=== PATIENT | male | born 1955 | race Caucasian/White ===

== ENCOUNTER 2016-10-18 14:31 | Inpatient (IN) | payer BC ==
[2016-10-18] MEDS ORDERED: Albuterol/Ipratropium NEB.SOL* Albuterol 2.5 MG/Ipratropium 0.5 MG 3 ML INH ONE ×2 (14:55→15:12)
[2016-10-18] MEDS ORDERED: Levofloxacin 750 MG IVPREMIX(* 750 MG/150 ML BAG IVPB ONE (15:11)
--- NOTE | 2016-10-18 15:16 | RAD ---
HISTORY: Cough COMPARISONS: None VIEWS:1: Single frontal portable view of the chest at 3:00 PM FINDINGS: LINES AND TUBES: None. CARDIOMEDIASTINAL SILHOUETTE: The cardiomediastinal silhouette is normal for portable technique. PLEURA: The costophrenic angles are sharp. No pleural abnormalities are noted. LUNG PARENCHYMA: The lungs are clear. ABDOMEN: The upper abdomen is clear. There is no subphrenic gas. BONES AND SOFT TISSUES: No bone or soft tissue abnormalities are noted. IMPRESSION: NO ACTIVE CARDIOPULMONARY DISEASE.
[2016-10-18 15:43] LABS: Hematocrit 46 % (42-52); Hemoglobin 15.8 g/dl (14.0-18.0); Mean Corpuscular HGB Conc 34 g/dl (31-36); Mean Corpuscular Hemoglobin 32 pg (27-31); Mean Corpuscular Volume 93 fL (80-94); Mean Platelet Volume 9 um3 (7.4-10.4); Red Blood Count 4.96 10^6/ul (4.0-5.4); Red Cell Distribution Width 13 % (10.5-15); White Blood Count 13.1 10^3/ul (3.5-10.8)
[2016-10-18 15:53] LABS: Urine Bacteria Absent (Absent); Urine Bilirubin Negative (Negative); Urine Glucose Negative (Negative); Urine Nitrite Negative (Negative)
[2016-10-18] MEDS: NS 0.9% 1000 ML* 2,900 ML IV ONE (15:53)
[2016-10-18 16:05] LABS: Albumin 3.7 g/dL (3.2-5.2); Calcium 9.1 mg/dL (8.6-10.3); EGFR African American 90.1 (>60); Globulin 3.6 g/dL (2-4); Potassium 3.3 mmol/L (3.5-5.0); Total Bilirubin 1.7 mg/dL (0.2-1.0); Total Protein 7.3 g/dL (6.4-8.9)
[2016-10-18 16:12] LABS: Add Diff/Slide Review? Slide Review Added; Comments Flag Yes
[2016-10-18] MEDS ORDERED: Albuterol 2.5 MG/3 ML NEB.SOL* (0.083%) INH PRN (16:33)
[2016-10-18] MEDS ORDERED: methylPREDNISolone 125 MG* 2 ML VIAL IV ONE (16:33)
[2016-10-18 16:37] LABS: C Reactive Protein 234.8 mg/L (< 5.00)
[2016-10-18] MEDS ORDERED: Acetaminophen TAB* 325 MG PO PRN (16:45)
[2016-10-18] MEDS ORDERED: Ketorolac INJ* 30 MG/ML 1 ML VIAL IV PUSH ONE (16:45)
--- NOTE | 2016-10-18 16:54 | RAD ---
Indication: Dyspnea. Comparison is done with exam done earlier the same day. 2 views of the chest including dual energy PA views demonstrate no mediastinal shift. Heart is of normal size and configuration. Airspace disease is noted in the right midlung field. Left lung field is clear. IMPRESSION: Findings suspicious for right mid lung zone pneumonia.
[2016-10-18 17:06] LABS: Immature Granulocytes 20 % (0-9); Metamyelocytes % 1 % (0-2); Neutrophil % 63 % (38-83); RBC Morphology Normal (Normal)
[2016-10-18] MEDS: Enoxaparin(*) 40 MG/0.4 ML SYR SUBCUT SCH (18:28)
[2016-10-18] MEDS ORDERED: Levalbuterol 1.25MG/0.5ML NEB INH PRN (18:39)
--- NOTE | 2016-10-18 19:21 | ED ---
Jessie Smart Thomas, scribed for Cynthia Xiao MD on 10/18/16 at 1459 . Shortness of Breath - HPI Summary HPI Summary: The pt is a 61 y/o M referred from his family medicine office and BIBA to the ED c/o SOB that began yesterday when he was playing golf and has continued since. He also complains of a cough with green production that began 2 months ago but has worsened in the last four days. Pt additionally c/o night sweats, fever, and nasal congestion. PMHx: fractures. PSHx: orthopedic surgeries. SHx: former smoker (quit 20 years ago), heavy alcohol use, no illicit drug use. FHx: negative. He lives with his significant other. He has not been evaluated by a PCP in 7 years. He is on [place] Oxygen 4L. - History of Current Complaint Chief Complaint: EDShortnessOfBreath Time Seen by Provider: 10/18/16 14:41 Hx Obtained From: Patient Onset/Duration: Lasting Days - 1, Still Present Dyspnea At: Rest Alleviating Factors: Nothing Associated Signs & Symptoms: Cough (Productive) - green production, Fever, Diaphoresis - night, Nasal Congestion - Allergy/Home Medications Allergies/Adverse Reactions: Allergies Allergy/AdvReac Type Severity Reaction Status Date / Time Penicillins Allergy Hives Verified 10/18/16 14:52 PMH/Surg Hx/FS Hx/Imm Hx Previously Healthy: No Cardiovascular History: Denies: Hx Congestive Heart Failure Respiratory History: Denies: Hx Cystic Fibrosis Musculoskeletal History: Reports: Hx of Fracture(s) - Surgical History Surgery Procedure, Year, and Place: multiple joint/bone Fell out of [place] [employer]. Oral surgery - Immunization History Date of Tetanus Vaccine: PT STATES UNSURE Date of Influenza Vaccine: PT STATES UNSURE Infectious Disease History: No Infectious Disease History: Denies: Hx of Known/Suspected MRSA, Hx Shingles, Hx Tuberculosis, Traveled Outside the [place] in Last 30 Days - Family History Known Family History: Negative: Other - When asked FHx, he responds "nothing" - Social History Alcohol Use: Daily - heavy Substance Use Type: Reports: None Hx Tobacco Use: Yes Smoking Status (MU): Former Smoker Review of Systems Positive: Fever, Skin Diaphoresis - night Positive: Other - POS: nasal congestion Positive: Shortness Of Breath - onset yesterday, Cough - onset 2 months ago, green production All Other Systems Reviewed And Are Negative: Yes Physical Exam Triage Information Reviewed: Yes Vital Signs On Initial Exam: Initial Vitals Pulse Resp Pulse Ox 74 20 93 10/18/16 14:41 10/18/16 14:41 10/18/16 14:41 Vital Signs Reviewed: Yes Appearance: Positive: Well-Appearing, No Pain Distress Skin: Positive: Warm, Skin Color Reflects Adequate Perfusion, Dry Eyes: Positive: EOMI, RUSTY ENT: Positive: Pharynx normal, TMs normal Neck: Positive: Supple, Nontender Respiratory/Lung Sounds: Positive: Clear to Auscultation, Decreased Breath Sounds - bilaterally, Other - He is tachypnic and on oxygen. Cardiovascular: Positive: RRR. Negative: Murmur, Rub, Other - NEG: gallop Abdomen Description: Positive: Nontender, Soft. Negative: Distended, Guarding, Other: - NEG: rebound Bowel Sounds: Positive: Present Musculoskeletal: Positive: Strength/ROM Intact. Negative: Edema Left, Edema Right Neurological: Positive: Sensory/Motor Intact, Alert, Oriented to Person Place, Time, CN Intact II-III Psychiatric: Positive: Affect/Mood Appropriate Diagnostics - Vital Signs Vital Signs Temp Pulse Resp BP Pulse Ox 10/18/16 14:46 100.5 F 102 24 114/77 96 10/18/16 14:45 45 23 95 10/18/16 14:41 74 20 93 - Laboratory Lab Results: Lab Results 10/18/16 10/18/16 10/18/16 Range/Units 15:30 15:30 15:30 WBC 13.1 H (3.5-10.8) 10^3/ul RBC 4.96 (4.0-5.4) 10^6/ul Hgb 15.8 (14.0-18.0) g/dl Hct 46 (42-52) % MCV 93 (80-94) fL MCH 32 H (27-31) pg MCHC 34 (31-36) g/dl RDW 13 (10.5-15) % Plt Count 189 (150-450) 10^3/ul MPV 9 (7.4-10.4) um3 Immature Gran % (Auto) 20 H (0-9) % Neut % (Auto) 82.7 (38-83) % Lymph % (Auto) 5.0 L (25-47) % [place] % (Auto) 11.9 H (1-9) % Eos % (Auto) 0 (0-6) % Baso % (Auto) 0.4 (0-2) % Absolute Neuts (auto) 10.8 H (1.5-7.7) 10^3/ul Absolute Lymphs (auto) 0.7 L (1.0-4.8) 10^3/ul Absolute Monos (auto) 1.6 H (0-0.8) 10^3/ul Absolute Eos (auto) 0 (0-0.6) 10^3/ul Absolute Basos (auto) 0.1 (0-0.2) 10^3/ul Absolute Nucleated RBC 0 10^3/ul Neutrophils % 63 (38-83) % Band Neutrophils % 19 H (0-8) % Lymphocytes % 7 L (25-47) % Monocytes % 10 (0-13) % Metamyelocytes % 1 (0-2) % Nucleated RBC % 0 Normal RBC Morphology Normal (Normal) INR (Anticoag Therapy) 1.10 (0.89-1.11) APTT 29.2 (26.0-36.3) seconds Sodium 136 (133-145) mmol/L Potassium 3.3 L (3.5-5.0) mmol/L Chloride 103 (101-111) mmol/L Carbon Dioxide 21 L (22-32) mmol/L Anion Gap 12 H (2-11) mmol/L BUN 15 (6-24) mg/dL Creatinine 1.07 (0.67-1.17) mg/dL Est GFR ( Amer) 90.1 (>60) Est GFR (Non-Af Amer) 70.0 (>60) BUN/Creatinine Ratio 14.0 (8-20) Glucose 124 H (70-100) mg/dL Lactic Acid (0.5-2.0) mmol/L Calcium 9.1 (8.6-10.3) mg/dL Magnesium 2.0 (1.9-2.7) mg/dL Total Bilirubin 1.70 H (0.2-1.0) mg/dL AST 15 (13-39) U/L ALT 13 (7-52) U/L Alkaline Phosphatase 71 (34-104) U/L Troponin I 0.00 (<0.04) ng/mL C-Reactive Protein 234.80 H (< 5.00) mg/L Total Protein 7.3 (6.4-8.9) g/dL Albumin 3.7 (3.2-5.2) g/dL Globulin 3.6 (2-4) g/dL Albumin/Globulin Ratio 1.0 (1-3) Urine Color Urine Appearance Urine pH (5-9) Ur Specific [place] (1.010-1.030) Urine Protein (Negative) Urine Ketones (Negative) Urine Blood (Negative) Urine Nitrate (Negative) Urine Bilirubin (Negative) Urine Urobilinogen (Negative) Ur Leukocyte Esterase (Negative) Urine WBC (Auto) (Absent) Urine RBC (Auto) (Absent) Ur Squamous Epith Cells (Absent) Urine Bacteria (Absent) Hyaline Casts (Absent) Urine Glucose (Negative) 10/18/16 10/18/16 Range/Units 15:30 15:40 WBC (3.5-10.8) 10^3/ul RBC (4.0-5.4) 10^6/ul Hgb (14.0-18.0) g/dl Hct (42-52) % MCV (80-94) fL MCH (27-31) pg MCHC (31-36) g/dl RDW (10.5-15) % Plt Count (150-450) 10^3/ul MPV (7.4-10.4) um3 Immature Gran % (Auto) (0-9) % Neut % (Auto) (38-83) % Lymph % (Auto) (25-47) % [place] % (Auto) (1-9) % Eos % (Auto) (0-6) % Baso % (Auto) (0-2) % Absolute Neuts (auto) (1.5-7.7) 10^3/ul Absolute Lymphs (auto) (1.0-4.8) 10^3/ul Absolute Monos (auto) (0-0.8) 10^3/ul Absolute Eos (auto) (0-0.6) 10^3/ul Absolute Basos (auto) (0-0.2) 10^3/ul Absolute Nucleated RBC 10^3/ul Neutrophils % (38-83) % Band Neutrophils % (0-8) % Lymphocytes % (25-47) % Monocytes % (0-13) % Metamyelocytes % (0-2) % Nucleated RBC % Normal RBC Morphology (Normal) INR (Anticoag Therapy) (0.89-1.11) APTT (26.0-36.3) seconds Sodium (133-145) mmol/L Potassium (3.5-5.0) mmol/L Chloride (101-111) mmol/L Carbon Dioxide (22-32) mmol/L Anion Gap (2-11) mmol/L BUN (6-24) mg/dL Creatinine (0.67-1.17) mg/dL Est GFR ( Amer) (>60) Est GFR (Non-Af Amer) (>60) BUN/Creatinine Ratio (8-20) Glucose (70-100) mg/dL Lactic Acid 1.1 (0.5-2.0) mmol/L Calcium (8.6-10.3) mg/dL Magnesium (1.9-2.7) mg/dL Total Bilirubin (0.2-1.0) mg/dL AST (13-39) U/L ALT (7-52) U/L Alkaline Phosphatase (34-104) U/L Troponin I (<0.04) ng/mL C-Reactive Protein (< 5.00) mg/L Total Protein (6.4-8.9) g/dL Albumin (3.2-5.2) g/dL Globulin (2-4) g/dL Albumin/Globulin Ratio (1-3) Urine Color [place] Urine Appearance Cloudy Urine pH 5.0 (5-9) Ur Specific [place] 1.029 (1.010-1.030) Urine Protein 2+(100 mg/dl) H (Negative) Urine Ketones 2+ H (Negative) Urine Blood Negative (Negative) Urine Nitrate Negative (Negative) Urine Bilirubin Negative (Negative) Urine Urobilinogen Positive H (Negative) Ur Leukocyte Esterase Negative (Negative) Urine WBC (Auto) Trace(0-5/hpf) (Absent) Urine RBC (Auto) 2+(6-10/hpf) H (Absent) Ur Squamous Epith Cells Present H (Absent) Urine Bacteria Absent (Absent) Hyaline Casts Present H (Absent) Urine Glucose Negative (Negative) Result Diagrams: 10/18/16 15:30 10/18/16 15:30 Lab Statement: Any lab studies that have been ordered have been reviewed, and results considered in the medical decision making process. - CT CXR CT Interpretation: No Acute Changes - CXR reveals no active cardiopulmonary disease. ED physician has reviewed this radiology report and agrees. CT Interpretation Completed By: Radiologist - EKG 14:46 Cardiac Rate: Tachycardia - 113 BPM EKG Interpretation: Sinush tach. PACs and PVCs. Inferior Q waves. Poor R wave progression. EKG Comparison: Other - No prior Course/Dx - Course Course Of Treatment: 61 yo male with no med care for 7 years sent by EDMdesigner with fever there of 103 and o2 sat in the 80's. Pt coughing frequently on exam and tachypneic, sepsis protocol initiated and call made to Dr. Kibmrough for admission - Diagnoses Provider Diagnoses: Pneumonia - Physician Notifications Discussed Care of Patient With: Zoran Kimbrough Time Discussed With Above Provider: 15:37 Instructed by Provider To: Other - He was made aware of the patient. He was admitted to [facility] at 17:15. Discharge - Discharge Plan Condition: Fair Disposition: ADMITTED TO [facility] The documentation as recorded by the Jessie singh Thomas accurately reflects the service I personally performed and the decisions made by me, Cynthia Xiao MD.
[2016-10-18] MEDS: guaiFENesin ER TAB 600 MG PO SCH (20:35)
--- NOTE | 2016-10-18 22:30 | HP ---
CC: Anshul Nicole MD * MEDICINE HISTORY AND PHYSICAL: DATE OF ADMISSION: 10/18/16 PROVIDER: Bryan Goncalves NP ATTENDING PHYSICIAN: Zoran Kimbrough MD * (as dictated by Bryan Goncalves NP) PRIMARY CARE PROVIDER: Anshul Nicole MD CHIEF COMPLAINT: Cough and shortness of breath. HISTORY OF PRESENT ILLNESS: Mr. Lowe is a 61-year-old male patient who presents to the ER today after being referred here by his primary care provider for concern for respiratory distress. Of note, the patient does follow up with Dr. Nicole, but states that he has not been there in 7 years. He states "I don 't usually see doctors." He denies any past medical history or any current medications. He reports the cough has been dry and persistent for over a year. He has not pursued workup for this. The cough has worsened this week around Saturday becoming increasingly worse. Cough wakes him up at night. The patient is unable to sleep and usually has a sleep sitting up either in a recliner or propped up with pillows. He has subjective fevers at home with evidence of sweating and chills. He reports increasing weakness. The patient has been coughing up green secretions. He has been treating his cough with Tessalon Perles that have been left over from his significant other's prescription. He also reports associated headache and chest pain that he relates to the cough from excessive coughing. The patient also reports posttussive vomiting due to the degree of coughing that he has had. Here in the ER, the patient becomes very winded and is provoked into further coughing fits with even minimal discussion. In the ER, the patient was noted to have a low-grade fever of 100.5. He is tachycardic. He is requiring 4.5 L of oxygen to maintain his O2 sats and keep him comfortable. He has an elevated WBC count of 13,000 as well as elevated CRP of 234. The patient's initial chest x-ray showed no acute pathology, but there is a portable chest x-ray. We did obtain a lateral view, which shows a right mid lung zone pneumonia. PAST MEDICAL HISTORY: The patient denies, although his significant other reports that he has a previous history of genital herpes. HOME MEDICATIONS: On no medications. 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 Name of medication is unknown by family. ALLERGIES: PENICILLIN. FAMILY HISTORY: Reviewed and noncontributory. SOCIAL HISTORY: The patient denies any history of tobacco use. He does have gin and tonic 1 to 2 drinks on most days. He denies any history of illicit drug use. He works in . He lives with his significant other, Lizeth Salcido , who is also his surrogate decision maker. REVIEW OF SYSTEMS: A 12-point review of systems was completed. All those not mentioned in the HPI are negative. PHYSICAL EXAMINATION GENERAL: Mr. Lowe is a 61-year-old male patient, who is well developed. He is lying in the ED stretcher. He is coughing persistently and appears moderately distressed. VITAL SIGNS: Temperature 100.5, heart rate 108, respiratory rate 22, blood pressure 127/73, and O2 saturation is 99% on 4.5 L nasal cannula. HEENT: Head is atraumatic, normocephalic. Face is symmetrical. Pupils are equal, round and reactive to light. Extraocular movements are intact. Oral mucosa appears dry. There is no oropharyngeal exudate. NECK: Supple. No lymphadenopathy appreciated at this point in time along the cervical, supraclavicular, and auricular nodes. No JVD noted. RESPIRATORY: Lung are diffusely wheezy with expiration. The patient has decreased breath sounds on the right side. The patient has a persistent productive cough. CARDIAC: S1, S2 heart sounds. Regular rate and rhythm. No murmurs, rubs, or gallops. There is no peripheral edema. The patient has 2+ distal pulses. ABDOMEN: Soft, nontender, nondistended. Bowel sounds are present times all 4 quadrants. MUSCULOSKELETAL: There is no clubbing or cyanosis. The patient has full range of motion. SKIN: Appears grossly intact. The patient has a francisco j complexion and warm to the touch, appears to be flushed. NEURO: Cranial nerves II through XII are grossly intact. The patient moves all extremities. Sensation is intact to light touch in all extremities. PSYCH: He is alert and oriented x3. Affect is appropriate. LABORATORY DATA/DIAGNOSTIC STUDIES: CBC: WBC 13.1, hemoglobin 15.8, hematocrit 46, platelet count 189. CMP: Sodium 136, potassium 3.3, chloride 103, carbon dioxide 21, BUN 15, creatinine 1.07, glucose 124. Lactic acid 1.1. Calcium 9.1, magnesium 2.0. Total bilirubin 1.7, AST 15, ALT 13, alk phos 71. Troponin 0.00. CRP 234. Urinalysis shows urine specific gravity of 1.029. The patient has positive protein and ketones in his urine as well as positive rbc's. PA and lateral views of the chest x-ray showed concern for right mid lung pneumonia. EKG shows sinus tachycardia with PVCs. The patient has a left axis deviation. ASSESSMENT AND PLAN: Mr. Lowe is a 61-year-old male patient who presents today with dyspnea, cough, respiratory distress with concern for right mid lung pneumonia. He will be admitted to the Medicine. Plan is as follows: 1. Right middle lobe pneumonia. The patient has been started on Levaquin here in the ER, which we will continue. Additionally, given the patient's persistent cough, I will order him IV Solu-Medrol. It should be followed up by prednisone starting tomorrow. The patient is also ordered p.r.n. nebulizer treatments. We will continue supportive care with guaifenesin and respiratory treatments and antitussive medications. Additionally, I will check an S. pneumoniae and Legionella urine antigen as well as a flu swab. Blood cultures are pending. Sputum culture has been ordered. The patient meets sepsis criteria with concern for systemic inflammatory response syndrome by leukocytosis and tachycardia. He meets sepsis-3 criteria on admission with a qSOFA score of 1 for tachypnea and elevated total bilirubin. 2. Hypokalemia. This is secondary to hypovolemia in the presence of poor appetite with acute illness. Continue fluid resuscitation. I will replace the patient with IV fluids as he is unable to swallow much at this time. We will recheck a BMP tomorrow. 3. Persistent cough. Plan is to check a CT of the chest perhaps tomorrow as there is a concern that the patient may have some other underlying lung condition. As I have just obtained PA and lateral this evening, I will plan to obtain a CT chest tomorrow to follow up the area. This could also be done as an outpatient; but given the patient's resistance to following up with primary care providers, it would be most beneficial to obtain a CT chest as an inpatient. 4. FEN. The patient is ordered a regular diet and IV hydration. 5. DVT prophylaxis. The patient is ordered subcu Lovenox. 6. Code status. The patient is a full code. 7. Disposition. Admit to telemetry. Discharge to home when medically stable. TIME SPENT: Time spent on this admission was approximately 60 minutes, more than half that time was spent [id number] with the patient obtaining history and physical, performing the physical examination, and reviewing the plan of care. Plan of care was also reviewed with my attending, Dr. Kimbrough, who is in agreement. BRYAN GONCALVES, [employer] PERSON [id number]/[facility] #: [id number] MATEUSZ
[2016-10-19 05:25] LABS: Hematocrit 42 % (42-52); Hemoglobin 14.7 g/dl (14.0-18.0); Mean Corpuscular HGB Conc 35 g/dl (31-36); Mean Corpuscular Hemoglobin 32 pg (27-31); Mean Corpuscular Volume 93 fL (80-94); Mean Platelet Volume 9 um3 (7.4-10.4); Red Blood Count 4.56 10^6/ul (4.0-5.4); Red Cell Distribution Width 13 % (10.5-15); White Blood Count 8.7 10^3/ul (3.5-10.8)
[2016-10-19 05:38] LABS: BUN/Creatinine Ratio 17.6 (8-20); Calcium 8.7 mg/dL (8.6-10.3); EGFR African American 108.6 (>60); EGFR Non-African American 84.4 (>60); Potassium 3.8 mmol/L (3.5-5.0)
[2016-10-19] MEDS ORDERED: predniSONE TAB* 20 MG PO ONE (06:00)
[2016-10-19 08:46] LABS: Albumin 3.3 g/dL (3.2-5.2); Direct Bilirubin 0.2 mg/dL (0.03-0.18); Globulin 3.2 g/dL (2-4); Indirect Bilirubin 0.6 mg/dL (0.3-1.0); Total Bilirubin 0.8 mg/dL (0.2-1.0); Total Protein 6.5 g/dL (6.4-8.9)
[2016-10-19] MEDS: guaiFENesin ER TAB 600 MG PO SCH (08:52)
[2016-10-19] MEDS ORDERED: Potassium Chlor TAB* 20 MEQ TAB.ER PO ONE (11:17)
--- NOTE | 2016-10-19 11:19 | PN ---
Subjective Date of Service: 10/19/16 Interval History: Patient seen this morning. Reports feeling slightly better today, has been having productive cough this morning of green/yellow sputum. Still with frequent coughing, has not been up and ambulating outside of the room. Had 5 beat NSVT this AM Family History: Unchanged from Admission Social History: Unchanged from Admission Past Medical History: Unchanged from Admission Objective Active Medications: Acetaminophen (Tylenol Tab*) 650 mg PO Q4H PRN Enoxaparin Sodium (Lovenox(*)) 40 mg SUBCUT Q24H ANDER Levofloxacin/Dextrose (Levaquin 750 Mg Ivpremix(*)) 750 mg in 150 mls @ 100 mls /hr IVPB Q24H ANDER Lactated Ringer's (Lactated Ringers 1000 Ml Bag*) 1,000 mls @ 100 mls/hr IV PER RATE ANDER Levalbuterol HCl (Xopenex 1.25 Mg/0.5 Ml Neb.[place]*) 1.25 mg INH Q2H PRN Prednisone (Deltasone Tab*) 40 mg PO DAILY [facility] Vital Signs 10/18/16 10/18/16 10/18/16 16:30 16:45 17:00 Temperature Pulse Rate 54 57 Respiratory 31 27 27 Rate Blood Pressure 128/72 141/63 (mmHg) O2 Sat by Pulse 92 95 Oximetry 10/18/16 10/18/16 10/19/16 20:00 23:37 03:35 Temperature 98.0 F 97.5 F Pulse Rate 85 76 Respiratory 17 16 16 Rate Blood Pressure 120/82 117/95 (mmHg) O2 Sat by Pulse 97 92 92 Oximetry 10/19/16 10/19/16 07:18 08:00 Temperature 98.3 F Pulse Rate 74 Respiratory 20 20 Rate Blood Pressure 122/81 (mmHg) O2 Sat by Pulse 94 94 Oximetry Oxygen Devices in Use Now: None Appearance: Middle-aged, M, laying in bed, frequent coughing Eyes: No Scleral Icterus Ears/Nose/Mouth/Throat: Mucous Membranes Moist Neck: NL Appearance and Movements; NL JVP Respiratory: - - Cough with deep inspiration, RML field rales, good air movement Cardiovascular: NL Sounds; No Murmurs; No JVD, RRR Abdominal: NL Sounds; No Tenderness; No Distention Lymphatic: No Cervical Adenopathy Extremities: No Edema Skin: No Rash or Ulcers Neurological: Alert and Oriented x 3 Result Diagrams: 10/19/16 05:05 10/19/16 05:05 Microbiology and Other Data: Microbiology 10/19/16 02:29 Gram Stain - Final Sputum Expectorated 10/18/16 16:55 Influenza Types A,B Antigen (ISAAC) - Final Nasal Specimen received for Influenza A/B Molecular testing Assess/Plan/Problems-Billing Assessment: CAP in a 61 yo M - Patient Problems (1) CAP (community acquired pneumonia) Current Visit: Yes Comment: Improving slowly, continue Levaquin, prednisone. Check ambulatory O2 sat (2) NSVT (nonsustained ventricular tachycardia) Current Visit: Yes Comment: Replete K. Continue to monitor on tele. (3) DVT prophylaxis Current Visit: Yes Comment: Lovenox SQ Status and Disposition: Inpatient for additional IV ABx, monitoring
--- NOTE | 2016-10-19 12:56 | RAD ---
INDICATION: Persistent cough, follow-up chest x-ray. COMPARISON: Comparison is made with a prior chest x-ray studies from October 18, 2016. TECHNIQUE: A CT scan of the chest was performed without intravenous contrast. Contiguous axial sections were obtained from the lung apices through the lung bases. Images were reconstructed in the coronal and sagittal planes. FINDINGS: There is a patchy infiltrate present in the right upper lobe adjacent to the major fissure which accounts for the prior chest x-ray abnormality. In addition, there are dependent infiltrates present posteriorly in both lower lobes. No pleural effusion is seen. There are slightly prominent right paratracheal and precarinal lymph nodes measuring up to 1.1 cm in transverse dimension. No enlarged hilar lymph nodes are appreciated. The heart is within normal limits in size. No pericardial effusion is present. The thoracic aorta is normal in caliber. There appears to be a hemangioma present within the L1 vertebral body on the right side. No other focal osseous abnormalities are seen. IMPRESSION: RIGHT UPPER AND BILATERAL LOWER LOBE INFILTRATES MOST CONSISTENT WITH PNEUMONIA. RECOMMEND FOLLOW-UP CHEST X-RAYS TO RESOLUTION.
[2016-10-19] MEDS ORDERED: Levofloxacin 750 MG IVPREMIX(* 750 MG/150 ML BAG IVPB SCH (16:00)
[2016-10-19] MEDS: Enoxaparin(*) 40 MG/0.4 ML SYR SUBCUT SCH (16:26)
[2016-10-19] MEDS ORDERED: guaiFENesin/CODIEN 100MG-10MG* 5 ML UDC PO PRN (23:45)
[2016-10-20 07:22] VITALS: BP 122/80
[2016-10-20] MEDS ORDERED: predniSONE TAB* 20 MG PO SCH (09:00)
--- NOTE | 2016-10-20 09:17 | DCNOTE ---
Patient seen this morning. Still with frequent coughing but says this is not unusual for him this time of year with allergies. Cough remains productive. Feels he is able to breathe deeper and easier. Ambulated around the unit with no issues. On exam, RML field rales, no wheezing appreciated, RRR, s1 and s2 present, no m/ g/r, abd soft, NTND, BS+ Plan to discharge home on oral ABx for additional 5 days. F/U with Dr. Nicole.
--- NOTE | 2016-10-20 17:51 | DS ---
CC: Dr. Nicole * DISCHARGE SUMMARY: DATE OF ADMISSION: 10/18/16 DATE OF DISCHARGE: 10/20/16 PRIMARY CARE PHYSICIAN: Dr. Nicole. PRINCIPAL DISCHARGE DIAGNOSIS: Community-acquired pneumonia. STUDIES DONE DURING HOSPITALIZATION: 1. Chest x-ray. Impression: No active cardiopulmonary disease. 2. Chest x-ray, PA and lateral. Impression: Findings suggestive of a right mid lung zone pneumonia. 3. CT chest without contrast. Impression: Right upper and bilateral lower lobe infiltrates, was consistent with pneumonia. Recommend followup chest x- rays to resolution. DISCHARGE MEDICATION: 1. Levofloxacin 500 mg by mouth daily. 2. Prednisone 40 mg by mouth daily. HISTORY OF PRESENT ILLNESS AND HOSPITAL SUMMARY: Please see the full history and physical by Ny Zarate NP for full details. Briefly, Mr. Lowe is a 61-year- old man who presented to the hospital with progressive shortness of breath and productive cough that did not respond to [id number] medications. In the emergency room, the patient had a low-grade fever and initially required some supplemental oxygen. He had an elevated CRP and white blood cell count. Initial chest x-ray was negative; however, lateral and followup CT scan showed evidence of pneumonia. The patient was treated with levofloxacin and over the following days, his symptoms improved. He continued to have frequent cough, was able to ambulate and take deep breaths with no problems. He will be discharged home to complete antibiotics and a short course of steroids. He will follow up with Dr. Nicole as an outpatient. TIME SPENT: Total time spent on this discharge, 35 minutes. This is a summary of the hospitalization. Please see the full medical record for further details. [id number]/[facility] #: [id number] [facility]
== END 2016-10-20 11:45 | disposition home or self-care (01) | DRG 139 ==
LOC: ED 14:31 → MEDTELE 16:28
PROVIDERS: ADMIT Internal Medicine; ATTEND Hospitalist
DX: J18.9 Pneumonia, unspecified organism (principal); I47.2 Ventricular tachycardia; E87.6 Hypokalemia; E86.1 Hypovolemia; Z88.0 Allergy status to penicillin; Z72.89 Other problems related to lifestyle; Z87.891 Personal history of nicotine dependence
CPT/HCPCS: 36415; 71010; 71020; 71250; 80048; 80053; 80076; 81003; 81015; 83605; 83735; 84484; 85025; 85610; 85730; 86140; 87040; 87070; 87205; 87502; 87899; 93005; 94640; A9270-GY; J1650; J1885; J2930; J3480; J7512